=== PATIENT | female | born 1965 | race Two or more races ===

== ENCOUNTER 2023-12-27 21:18 | Emergency (ER) | payer BC ==
[~2023-12-27] VITALS: Ht 172.7 cm; Wt 77.0 kg
[2023-12-27 21:48] VITALS: BP 123/56; PULSE 72; RESP 16; TEMP 98.6; O2SAT 100
[2023-12-28 00:07] LABS: BASOPHILS % 0.6 % (0.0-2.0); EOSINOPHILS % 4.8 % (0.0-5.0); HEMATOCRIT. 37.7 % (36.0-48.0); HEMOGLOBIN. 12.6 g/dL (12.0-16.0); LYMPHOCYTES % 40.4 % (20.0-50.0); MEAN CORPUSCULAR HEMOGLOBIN 29.8 pg (28.0-32.0); MEAN CORPUSCULAR HGB CONC 33.4 g/dL (31.0-37.0); MEAN PLATELET VOLUME 9.3 fl (7.4-10.4); MONOCYTES % 10.8 % (2.0-8.0); NEUTROPHILS % 43.4 % (40.0-76.0); PLATELET 221 x1000/uL (130-400); RED BLOOD CELL COUNT 4.24 mill/uL (4.2-5.4); RED CELL DISTRIBUTION WIDTH 13.6 % (11.6-14.6); WHITE BLOOD COUNT 4.4 x1000/uL (4.5-11.0)
[2023-12-28 00:21] LABS: CHLORIDE 106 mEq/L (98-107); POTASSIUM 3.8 mEq/L (3.5-5.1); SODIUM 140 mEq/L (136-145)
[2023-12-28 00:22] LABS: CARBON DIOXIDE 29 mEq/L (21-32)
[2023-12-28 00:23] LABS: CALCIUM 10.1 mg/dL (8.7-10.4)
[2023-12-28 00:27] LABS: CREATININE 0.7 mg/dL (0.6-1.0)
[2023-12-28 00:28] LABS: GLUCOSE 97 mg/dL (70-105); UREA NITROGEN BLOOD 14 mg/dL (9-23)
[2023-12-28 00:29] LABS: ALANINE AMINOTRANSFERASE 14 IU/L (10-49); ALBUMIN 4.4 g/dL (3.2-4.8); ASPARTATE AMINOTRANSFERASE 23 IU/L (<34); TROPONIN I HIGH SENSITIVITY < 4 ng/L (3.0-34)
[2023-12-28 00:30] LABS: BILIRUBIN TOTAL 0.4 mg/dL (0.1-1.0); PROTEIN TOTAL 7.4 g/dL (6.0-8.3)
== END 2023-12-28 01:49 | disposition home or self-care (01) ==
LOC: ER 21:18
DX: R00.2 Palpitations (principal); Z88.2 Allergy status to sulfonamides
CPT/HCPCS: 36415; 71045; 80053; 84484; 85025; 93005; 99285